=== PATIENT | female | born 1940 | race Hispanic/Latino ===

== ENCOUNTER 2024-08-01 19:37 | Inpatient (IN) | payer OTHER ==
[2024-08-01 21:06] LABS: Nucleated RBC Absolute Count 0.1 (0-0); Nucleated Red Blood Cells % 1.2 % (0-0)
[2024-08-01 21:10] LABS: PT Prothrombin Time 13.1 SECONDS (9.4-12.5); Protime INR 1.18
[2024-08-01 21:13] LABS: Absolute Basophils 0.2 K/uL (0-0.5); Absolute Lymphocytes (CBC) 1.4 K/uL (0.7-4.9); Absolute Monocytes 0.8 K/uL (0.1-1.3); Eosinophils % 0.3 % (0-4.4); Hematocrit 17.7 % (36.0-45.0); Lymphocytes % 16.6 % (15.3-44.8); MCH 17.3 pg (27.0-35.0); MCHC 28.3 g/dL (32.0-36.0); MCV 61.2 fL (80-100); MPV 8.8 fL (7.6-11.3); Monocytes % 9.9 % (3.3-12.3); Neutrophils % 71.2 % (41.7-73.7); Platelets 247 thou/uL (152-406); RBC Red Blood Cell Count 2.89 M/uL (3.86-4.86)
--- NOTE | 2024-08-01 21:19 | RAD REPORT ---
EXAM: Chest Single View HISTORY: AMS COMPARISON: None. FINDINGS: LUNGS/PLEURA: Diffuse prominence of the pulmonary interstitium. Mild hazy opacities. MEDIASTINUM: The mediastinal silhouette is within normal limits. CARDIAC: Cardiomegaly. UPPER ABDOMEN: No significant abnormality. BONES: No acute fracture. LINES/TUBES/OTHER: N/A IMPRESSION: Mild pulmonary edema suspected.
[2024-08-01 21:24] LABS: Albumin 3.9 g/dL (3.4-5.0); Anion Gap 12.3 mEq/L (5.0-15.0); Bilirubin Total 0.3 mg/dL (0.2-1.0); Globulin 3.8 g/dL (2.3-3.5); Potassium 4.3 mEq/L (3.5-5.1); Protein, Total 7.7 g/dL (6.4-8.2)
[2024-08-01] MEDS ORDERED: GABAPENTIN 300 MG CAP ONE (22:18)
[2024-08-01 23:18] LABS: Specific Gravity 1.017 (1.005-1.030); Urine Bilirubin NEGATIVE (Negative); Urine Blood Negative (Negative); Urine Clarity Clear (Clear); Urine Color Light-Yellow (Yellow); Urine Glucose NEGATIVE (Negative); Urine Ketones TRACE (Negative); Urine Microscopic Reflex YN NO UMIC; Urine Nitrite NEGATIVE (Negative); Urine Protein NEGATIVE (Negative); Urine Urobilinogen Normal (Normal)
[2024-08-02] MEDS ORDERED: NA CHLORIDE 0.9% 250 ML ONE ×2 (00:02→03:57)
[2024-08-02 02:58] LABS: Anisocytosis 2+; Blood Morphology Comment NOTED (NOT SEEN); Differential Total Cells Count 100; Eosinophils 1 % (0-3); Hypochromasia 3+; Lymphocytes 22 % (15-42); Microcytosis 2+; Monocytes 6 % (0-10); Nucleated Red Blood Cells 8 /100WBC; Platelet Estimate ADEQ; Poikilocytosis 2+; Polychromasia 2+; Segmented Neutrophils 69 % (40-80)
[2024-08-02 02:59] LABS: Ovalocytes 1+; Teardrop Cell FEW
[2024-08-02 03:21] LABS: Hematocrit 21.9 % (36.0-45.0); Hemoglobin 6.4 g/dL (12.0-15.0); MCH 18.5 pg (27.0-35.0); MCV 63.6 fL (80-100); MPV 8.3 fL (7.6-11.3); Platelets 206 thou/uL (152-406); RBC Red Blood Cell Count 3.44 M/uL (3.86-4.86); Red Cell Distribution Width 24.9 % (12.1-15.2)
--- NOTE | 2024-08-02 04:35 | RAD REPORT ---
EXAM DESCRIPTION: CT HEAD WITHOUT IV CONTRAST 08/02/2024 3:36 AM DIRECTOR DIVERSITY CLINICAL HISTORY: 83 years, Female, Confused. COMPARISON: CT Head 02/22/2023. FINDINGS: Multiple transaxial tomograms of the brain were obtained from the base of the skull to the vertex wit hout contrast. An individualized dose optimization technique, Automated Exposure Control, was utilized for the perfo rmed procedure. Brain: The brain demonstrate prominence of the sulci and gyri corresponding to mild brain atrophy. Th ere is periventricular white matter changes of microvascular ischemia. There are minimal punctate opacification bilateral basal ganglia. No acute intracranial hemorrhage. No midline shift and/or mass effect. Ventricles: Lateral ventricles and cisterns displace normal appearance. Vasculature: No visualized abnormalities in the arteries or dural venous sinuses. Scalp/skull: The calvarium demonstrate to be intact with no evidence for acute bony injuries. Sinuses: The visualized paranasal sinuses and mastoid air cells demonstrate to be clear. Orbits: No significant abnormalities in the visualized orbital structures. IMPRESSION: No acute intracranial hemorrhage. Mild brain atrophy with periventricular white matter changes of microvascular ischemia. Electronically signed by: Rell Bella MD 08/02/2024 03:50 AM DIRECTOR DIVERSITY Due to temporary technical issues with the [employer] reporting system, reports are being felicity d by the in-house radiologist without review as a courtesy to ensure prompt reporting the interpreting radiologist is fully responsible for the content of the report. Transcribed Date/Time: 08/02/2024 4:35 AM
[2024-08-02 07:34] LABS: Hematocrit 26.7 % (36.0-45.0); Hemoglobin 8.2 g/dL (12.0-15.0); MCH 21.2 pg (27.0-35.0); MCHC 30.8 g/dL (32.0-36.0); MCV 68.6 fL (80-100); MPV 8.7 fL (7.6-11.3); Platelets 210 thou/uL (152-406); RBC Red Blood Cell Count 3.89 M/uL (3.86-4.86); Red Cell Distribution Width 29.9 % (12.1-15.2)
--- NOTE | 2024-08-02 07:38 | ER ---
Nurse's Notes [facility] Name: Arvind Wolf Age: 83 yrs Sex: Female : 1940 Arrival Date: 08/01/2024 Time: 19:37 Bed 7 Private MD: Diagnosis: Altered mental status, unspecified;Dementia in other diseases classified elsewhere without behavioral disturbance;Anemia, unspecified;Do not resuscitate Presentation: 08/01 19:52 Chief complaint: increased confusion that started after starting bactrim for a uti. cp4 Symptoms started . Coronavirus screen: Client denies travel out of the [place] in the last 14 days. At this time, the client does not indicate any symptoms associated with coronavirus-19. Ebola Screen: Patient negative for fever greater than or equal to 101.5 degrees Fahrenheit, and additional compatible Ebola Virus Disease symptoms Patient denies exposure to infectious person. Patient denies travel to an Ebola-affected area in the 21 days before illness onset. No symptoms or risks identified at this time. Initial Sepsis Screen: Does the patient meet any 2 criteria? No. Patient's initial sepsis screen is negative. Does the patient have a suspected source of infection? No. Patient's initial sepsis screen is negative. Risk Assessment: Do you want to hurt yourself or someone else? Patient reports no desire to harm self or others. Onset of symptoms was July 30, 2024. 19:52 Method Of Arrival: Wheelchair cp4 19:52 Acuity: ZONIA 3 cp4 Triage Assessment: 19:54 General: Appears in no apparent distress. comfortable, Behavior is calm, cooperative, cp4 appropriate for age. Pain: Denies pain. 19:54 Neuro: Oriented to. Neuro: Oriented to person. cp4 Historical: - Allergies: 19:54 No Known Allergies; cp4 - Immunization history:: Adult Immunizations up to date. - Infectious Disease History:: Denies. - Social history:: Smoking status: Patient denies any tobacco usage or history of. Screenin:29 [facility] ED Fall Risk Assessment (Adult) History of falling in the last 3 months, al5 including since admission No falls in past 3 months (0 pts) Confusion or Disorientation Yes (5 pts) Intoxicated or Sedated No (0 pts) Impaired Gait Yes (1 pt) Mobility Assist Device Used Yes (1 pt) Altered Elimination Yes (1 pt) Score/Fall Risk Level 3 or more points = High Risk Oriented to surroundings, Maintained a safe environment, Provided non-skid footwear, Hourly rounding (assess needs \T\ fall precautionary measures) done, Apply high fall risk patient identification: yellow non skid footwear/ fall signage. Abuse screen: Denies threats or abuse. Denies injuries from another. Nutritional screening: No deficits noted. Tuberculosis screening: No symptoms or risk factors identified. Assessment: 21:04 General: Appears in no apparent distress. uncomfortable, Behavior is calm, cooperative. al5 General: per patient family, patient is oriented, but has been having confusion along with some delusions. patient family states that she was talking to people that were not even in the house. patient not doing that at this time. Pain: Complains of pain in right leg and left leg. Neuro: Level of Consciousness is awake, alert, obeys commands, Oriented to person, place, time, situation. Cardiovascular: Capillary refill < 3 seconds Patient's skin is warm and dry. Respiratory: Airway is patent Respiratory effort is even, unlabored, Respiratory pattern is regular, symmetrical. GI: No signs and/or symptoms were reported involving the gastrointestinal system. : No signs and/or symptoms were reported regarding the genitourinary system. EENT: No signs and/or symptoms were reported regarding the EENT system. Derm: Skin is intact, Skin is pink, warm \T\ dry. normal. Musculoskeletal: Reports pain in right leg and left leg. 22:57 Reassessment: Patient appears in no apparent distress at this time. No changes from al5 previously documented assessment. Patient and/or family updated on plan of care and expected duration. Pain level reassessed. Patient is alert, oriented x 3, equal unlabored respirations, skin warm/dry/pink. 23:48 Reassessment: Patient appears in no apparent distress at this time. Patient and/or al5 family updated on plan of care and expected duration. Pain level reassessed. Patient is alert, oriented x 3, equal unlabored respirations, skin warm/dry/pink. restless leg is better post medication. 08/02 00:30 Reassessment: Patient appears in no apparent distress at this time. No changes from al5 previously documented assessment. Patient and/or family updated on plan of care and expected duration. Pain level reassessed. Patient is alert, oriented x 3, equal unlabored respirations, skin warm/dry/pink. see blood transfusion flowsheet record for vitals. 02:30 Reassessment: Patient appears in no apparent distress at this time. No changes from al5 previously documented assessment. Patient and/or family updated on plan of care and expected duration. Pain level reassessed. Patient is alert, oriented x 3, equal unlabored respirations, skin warm/dry/pink. 03:10 Reassessment: Patient appears in no apparent distress at this time. No changes from al5 previously documented assessment. Patient and/or family updated on plan of care and expected duration. Pain level reassessed. Patient is alert, oriented x 3, equal unlabored respirations, skin warm/dry/pink. 04:15 Reassessment: Patient appears in no apparent distress at this time. No changes from al5 previously documented assessment. Patient and/or family updated on plan of care and expected duration. Pain level reassessed. Patient is alert, oriented x 3, equal unlabored respirations, skin warm/dry/pink. see blood transfusion flowsheet record for vitals. 05:20 Reassessment: Patient appears in no apparent distress at this time. No changes from al5 previously documented assessment. Patient and/or family updated on plan of care and expected duration. Pain level reassessed. Patient is alert, oriented x 3, equal unlabored respirations, skin warm/dry/pink. 06:14 Reassessment: Patient appears in no apparent distress at this time. No changes from al5 previously documented assessment. Patient and/or family updated on plan of care and expected duration. Pain level reassessed. Patient is alert, oriented x 3, equal unlabored respirations, skin warm/dry/pink. 07:30 Reassessment: Pt placed up for d/c by kip BLANCO, granddaughter at bedside is ph voicing concern about taking the pt home because she is still very confused, Dr Ruiz notified about family's concerns, d/c pending. 09:30 Reassessment: Patient appears in no apparent distress at this time. No changes from ph previously documented assessment. Patient and/or family updated on plan of care and expected duration. Pain level reassessed. Pt awake and alert, follows commands, oriented to person only, will be admitted for AMS. 12:20 Reassessment: Report faxed to second floor, notified STIVEN Jaramillo. ph Vital Signs: 08/01 19:52 BP 148 / 62; Pulse 79; Resp 18; Temp 97.1; Pulse Ox 96% ; Pain 0/10; cp4 20:15 BP 110 / 87; Pulse 76; Resp 19; Pulse Ox 100% on R/A; al5 21:00 BP 131 / 58; Pulse 88; Resp 15; Pulse Ox 91% on R/A; al5 21:15 BP 105 / 75; Pulse 86; Resp 22; Pulse Ox 100% on R/A; al5 21:30 BP 113 / 77; Pulse 86; Resp 21; Pulse Ox 100% on R/A; al5 21:45 BP 101 / 84; Pulse 77; Resp 23; Pulse Ox 100% on R/A; al5 22:00 BP 97 / 78; Pulse 93; Resp 20; Pulse Ox 100% on R/A; al5 22:15 BP 107 / 36; Pulse 91; Resp 20; Pulse Ox 100% on R/A; al5 22:30 BP 170 / 43; Pulse 89; Resp 24; Pulse Ox 99% on R/A; al5 22:45 BP 138 / 74; Pulse 90; Resp 22; Pulse Ox 99% on R/A; al5 23:00 BP 133 / 92; Pulse 94; Resp 22; Pulse Ox 100% on R/A; al5 08/02 00:00 BP 129 / 46; Pulse 81; Resp 21; Pulse Ox 99% on R/A; al5 01:21 Weight 58.06 kg; rv1 03:00 BP 112 / 85; Pulse 87; Resp 19; Temp 98.7; Pulse Ox 100% on R/A; al5 03:30 BP 116 / 41; Pulse 68; Resp 12; Pulse Ox 99% on R/A; al5 04:00 BP 121 / 41; Pulse 69; Resp 12; Pulse Ox 99% on R/A; al5 06:00 BP 165 / 49; Pulse 64; Resp 13; Temp 98.4; Pulse Ox 99% on R/A; al5 06:30 BP 150 / 84; Pulse 71; Resp 14; Pulse Ox 100% on R/A; al5 08:00 BP 126 / 89; Pulse 69; Resp 18; Pulse Ox 98% on R/A; ph 09:00 BP 137 / 92; Pulse 69; Resp 18; Pulse Ox 99% on R/A; ph 10:00 BP 138 / 51; Pulse 70; Resp 16; Pulse Ox 97% on R/A; ph 11:30 BP 130 / 94; Pulse 82; Resp 18; Temp 97.4; Pulse Ox 98% on R/A; ph 08/01 19:52 Pain Scale: Adult cp4 Heidi Coma Score: 11:30 Eye Response: spontaneous(4). Motor Response: obeys commands(6). Verbal Response: ph confused(4). Total: 14. ED Course: 08/01 19:40 Patient arrived in ED. gm2 19:54 Triage completed. cp4 19:56 Teresita Jackson is Primary Nurse. cp4 19:56 Arm band placed on right wrist. Patient placed in waiting room. EKG completed in 4 triage. Results shown to MD. 20:04 Medhat Aldridge MD is Attending Physician. bo1 20:29 No provider procedures requiring assistance completed. al5 20:30 Patient has correct armband on for positive identification. Bed in low position. Call al5 light in reach. Side rails up X2. family at bedside. Provided Education on: plan of care. 20:31 Bess Mccracken, STIVEN is Primary Nurse. al5 21:03 Inserted saline lock: 22 gauge in right antecubital area, using aseptic technique. al5 Blood collected. Flushed with 10 mL NS. 21:12 Chest Single View XRAY In Process Unspecified. EDMS 21:16 Notified ED physician of a critical lab result(s). Hemoglobin 5.0. vc1 22:30 Consent for blood and/or blood product transfusion explained by staff, explained by al5 physician, signed by guardian. 08/02 00:49 One-on-one care X 15 minutes. al5 02:44 CT Head Brain wo Cont In Process Unspecified. EDMS 07:37 Rahul Almaguer MD is Referral Physician. bo1 09:49 Attending Physician role handed off by Medhat Aldridge MD tyron 09:49 Collins Ruiz MD is Attending Physician. tyron 09:55 Primary Nurse role handed off by Bess Mccracken, STIVEN ph 09:55 Irina Gallegos RN is Primary Nurse. ph 09:57 Bao Franklin MD is Hospitalizing Provider. tyron 12:27 Patient admitted, IV remains in place. ph Administered Medications: 08/01 22:57 Drug: Gabapentin PO 300 mg PO once Route: PO; al5 08/02 01:59 Follow up: Response: No adverse reaction; Pain is decreased al5 12:11 Drug: Pantoprazole IVP 40 mg IVP once Route: IVP; Site: left antecubital; ph 12:30 Follow up: Response: No adverse reaction ph Medication: 08/01 20:29 VIS not applicable for this client. al5 Outcome: 08/02 07:38 Discharge ordered by . bo1 09:58 Decision to Hospitalize by Provider. tyron 13:20 Patient left the ED. ph Signatures: Dispatcher [employer] EDMS Collins Ruiz MD MD cha Hall, Patricia, STIVEN SALEEM ph Calcote, STIVEN Quintanilla RN vc1 Jocelyne Haskins 1 Teresita Jackson cp4 Terrie Roberts 2 Medhat Aldridge MD MD bo1 Bess Mccracken RN RN al5 Corrections: (The following items were deleted from the chart) 08/01 19:56 19:54 Neuro: Level of Consciousness is awake, alert, obeys commands, Oriented to cp4 person, place, time, situation, cp4 08/02 04:43 08/01 23:48 Reassessment: Patient appears in no apparent distress at this time. No al5 changes from previously documented assessment. Patient and/or family updated on plan of care and expected duration. Pain level reassessed. Patient is alert, oriented x 3, equal unlabored respirations, skin warm/dry/pink. al5 08/02 04:49 00:56 Reassessment: Patient appears in no apparent distress at this time. No changes al5 from previously documented assessment. Patient and/or family updated on plan of care and expected duration. Pain level reassessed. Patient is alert, oriented x 3, equal unlabored respirations, skin warm/dry/pink. al5
--- NOTE | 2024-08-02 07:38 | EDPHYS ---
Physician Documentation [facility] Name: Arvind Wolf Age: 83 yrs Sex: Female : 1940 Arrival Date: 08/01/2024 Time: 19:37 Bed 7 Private MD: ED Physician Collins Ruiz HPI: 08/01 20:55 This 83 yrs old Female presents to ER via Wheelchair with complaints of bo1 Altered Mental Status. 20:55 The patient presents with confusion, Hallucinations during the entire day since bo1 . Onset: The symptoms/episode began/occurred gradually, 2 day(s) ago. Associated signs and symptoms: Pertinent positives: Diminished appetite but will eat food in front of the pt, Pertinent negatives: abdominal pain, chest pain, vomiting. Patient's baseline: Normal except limited walking. Pt has been given "hospice care" since March for heart failure dx, twice a week hospice nurse care. Pt is towards the end of Bactrim for UTI sxs this week. Historical: - Allergies: 19:54 No Known Allergies; cp4 - Immunization history:: Adult Immunizations up to date. - Infectious Disease History:: Denies. - Social history:: Smoking status: Patient denies any tobacco usage or history of. ROS: 08/02 07:44 Cardiovascular: Negative for chest pain, bo1 Respiratory: Negative for shortness of breath, Abdomen/GI: Positive for black/tarry stool, rectal bleeding, Dark "black" stools for the past 2-3 weeks after pickup from [place], [place]/extremity: Positive for Shaking and twitching - restless leg syndrome "worse" after the Bacofen med was started, All other systems are negative, 07:45 Constitutional: Negative for fever, chills, and weight loss bo1 07:45 Constitutional: Negative for fever, weight loss, Exam: 08/01 22:01 ECG was reviewed by the Attending Physician. bo1 08/02 07:46 Constitutional: The patient appears alert, awake, non-toxic, frail, bo1 Eyes: Conjunctiva: pale, bilaterally, Sclera: icterus, is not appreciated, Chest/axilla: Inspection: normal, no acute changes, Cardiovascular: Rate: normal, Rhythm: regular, Pulses: no pulse deficits are appreciated, Respiratory: the patient does not display signs of respiratory distress, Respirations: normal, Breath sounds: are clear throughout, Abdomen/GI: Palpation: abdomen is soft and non-tender, Musculoskeletal/extremity: DVT Exam: no pain, no swelling, no tenderness, "occ shaking and tremor" Occasional jerking BLE. Skin: no rash present. Neuro: Orientation: is normal, appropriate for stated age, Mentation: is normal, appropriate for stated age, Memory: seizure activity, is not displayed by the patient, No AMS as pt is not seeing "red spots" on the saeed at the moment, 07:48 Constitutional: This is a well developed, well nourished patient who is awake, alert, bo1 and in no acute distress. Vital Signs: 08/01 19:52 BP 148 / 62; Pulse 79; Resp 18; Temp 97.1; Pulse Ox 96% ; Pain 0/10; cp4 20:15 BP 110 / 87; Pulse 76; Resp 19; Pulse Ox 100% on R/A; al5 21:00 BP 131 / 58; Pulse 88; Resp 15; Pulse Ox 91% on R/A; al5 21:15 BP 105 / 75; Pulse 86; Resp 22; Pulse Ox 100% on R/A; al5 21:30 BP 113 / 77; Pulse 86; Resp 21; Pulse Ox 100% on R/A; al5 21:45 BP 101 / 84; Pulse 77; Resp 23; Pulse Ox 100% on R/A; al5 22:00 BP 97 / 78; Pulse 93; Resp 20; Pulse Ox 100% on R/A; al5 22:15 BP 107 / 36; Pulse 91; Resp 20; Pulse Ox 100% on R/A; al5 22:30 BP 170 / 43; Pulse 89; Resp 24; Pulse Ox 99% on R/A; al5 22:45 BP 138 / 74; Pulse 90; Resp 22; Pulse Ox 99% on R/A; al5 23:00 BP 133 / 92; Pulse 94; Resp 22; Pulse Ox 100% on R/A; al5 08/02 00:00 BP 129 / 46; Pulse 81; Resp 21; Pulse Ox 99% on R/A; al5 01:21 Weight 58.06 kg; rv1 03:00 BP 112 / 85; Pulse 87; Resp 19; Temp 98.7; Pulse Ox 100% on R/A; al5 03:30 BP 116 / 41; Pulse 68; Resp 12; Pulse Ox 99% on R/A; al5 04:00 BP 121 / 41; Pulse 69; Resp 12; Pulse Ox 99% on R/A; al5 06:00 BP 165 / 49; Pulse 64; Resp 13; Temp 98.4; Pulse Ox 99% on R/A; al5 06:30 BP 150 / 84; Pulse 71; Resp 14; Pulse Ox 100% on R/A; al5 08:00 BP 126 / 89; Pulse 69; Resp 18; Pulse Ox 98% on R/A; ph 09:00 BP 137 / 92; Pulse 69; Resp 18; Pulse Ox 99% on R/A; ph 10:00 BP 138 / 51; Pulse 70; Resp 16; Pulse Ox 97% on R/A; ph 11:30 BP 130 / 94; Pulse 82; Resp 18; Temp 97.4; Pulse Ox 98% on R/A; ph 12/21 19:52 Pain Scale: Adult cp4 Heidi Coma Score: 11:30 Eye Response: spontaneous(4). Motor Response: obeys commands(6). Verbal Response: ph confused(4). Total: 14. MDM: 08/01 20:04 Medical Screening Exam initiated bo1 08/02 07:40 Differential Diagnosis: GI bleed, anemia. Data reviewed: vital signs, lab test bo1 result(s), EKG, radiologic studies, CT scan, plain films. Consideration of Admission/Observation Patient was admitted/placed on observation. No ICU beds or GI med today. Management of patient was discussed with the following: Hospitalist: Dr Jose BLANCO. Response to treatment: the patient's symptoms have markedly improved after treatment, the patient's condition has returned to base line, Pt is tranfused 2 units of PRBCs. Special discussion: With family, daughter and granddaughter. Option to maintain hospice care for now after Dx made in [place]. Melena history to be worked up if desired as an OP. No transfer to higher level of care at the present time.. 07:49 ED course: Multiple discussions with transfer service at [facility] DT. Risks benefits of a bo1 transfer. At this time a transfer is not indicated by discussion with IM at [facility] as pt's age and hospice status in not aligned with pt's family. [facility] a bed availability issue.. 08/01 20:05 Order name: CBC with Diff; Complete Time: 03:40 bo1 08/01 20:05 Order name: CMP; Complete Time: 21:28 bo1 08/01 20:05 Order name: Lactate w/ 2H reflex if indic.; Complete Time: 21:28 bo1 08/01 20:05 Order name: Protime (+inr); Complete Time: 21:28 bo1 08/01 20:05 Order name: Urinalysis w/ reflexes; Complete Time: 03:40 bo1 08/01 20:06 Order name: Urinalysis w/ reflexes bo 08/01 21:29 Order name: Type And Screen bo 08/01 22:59 Order name: Packed RBC Leukored EDMS 08/01 23:37 Order name: ABO/RH no charge; Complete Time: 03:40 EDMS 08/02 02:57 Order name: CBC w/o diff; Complete Time: 03:40 bo1 08/02 02:59 Order name: Manual Differential; Complete Time: 03:40 EDMS 08/02 03:46 Order name: BNP; Complete Time: 04:46 bo1 08/02 06:13 Order name: CBC w/o diff; Complete Time: 09:50 bo1 08/02 08:13 Order name: CBC Smear Scan; Complete Time: 09:50 EDMS 08/02 11:50 Order name: Basic Metabolic Panel EDMS 08/02 11:50 Order name: Basic Metabolic Panel EDMS 08/02 11:50 Order name: Basic Metabolic Panel EDMS 08/02 11:50 Order name: Basic Metabolic Panel EDMS 08/02 11:50 Order name: CBC with Automated Diff EDMS 08/02 11:50 Order name: CBC with Automated Diff EDMS 08/02 11:50 Order name: CBC with Automated Diff EDMS 08/02 11:50 Order name: CBC with Automated Diff EDMS 08/02 11:50 Order name: Magnesium EDMS 08/02 11:50 Order name: Magnesium EDMS 08/02 11:50 Order name: Magnesium EDMS 08/02 11:50 Order name: Magnesium EDMS 08/02 11:50 Order name: Phosphorus EDMS 08/02 11:50 Order name: Phosphorus EDMS 08/02 11:50 Order name: Phosphorus [facility] 08/02 11:50 Order name: Phosphorus [facility] 08/01 20:35 Order name: Chest Single View XRAY; Complete Time: 21:28 bo1 08/02 01:59 Order name: CT Head Brain wo Cont; Complete Time: 07:12 bo1 08/01 20:05 Order name: EKG; Complete Time: 20:06 bo1 08/02 11:49 Order name: Physical Therapy Consult [facility] 08/01 20:05 Order name: Cardiac monitoring; Complete Time: 21:23 bo1 08/01 20:05 Order name: EKG - Nurse/Tech; Complete Time: 21:23 bo1 08/01 20:05 Order name: IV Saline Lock - Large Bore; Complete Time: 21:03 bo1 08/01 20:05 Order name: Labs collected and sent; Complete Time: 21:03 bo1 08/01 20:05 Order name: O2 Per Protocol; Complete Time: 21:03 bo1 08/01 20:05 Order name: O2 Sat Monitoring; Complete Time: 21:03 bo1 08/01 20:05 Order name: Vital Signs; Complete Time: 21:03 bo1 EC/21 22:01 Rate is 83 beats/min. Rhythm is regular. QRS [place] is Normal. SD interval is normal. QRS bo1 interval is normal. QT interval is normal. No Q waves. T waves are Normal. No ST changes noted. Clinical impression: Normal ECG and LVH. Interpreted by me. Reviewed by me. Administered Medications: 22:57 Drug: Gabapentin PO 300 mg PO once Route: PO; al5 08/02 01:59 Follow up: Response: No adverse reaction; Pain is decreased al5 12:11 Drug: Pantoprazole IVP 40 mg IVP once Route: IVP; Site: left antecubital; ph 12:30 Follow up: Response: No adverse reaction ph Disposition Summary: 08/02/24 09:58 Hospitalization Ordered Notes: Hospitalization Status: Observation tyron Provider: Bao Franklin cha Location: Telemetry/MedSurg (observation)(08/02/24 09:58) tyron Condition: Fair(08/02/24 09:58) tyron Problem: new(08/02/24 09:58) tyron Symptoms: have improved(08/02/24 09:58) tyron Bed/Room Type: Standard tyron Room Assignment: 228(08/02/24 11:55) em1 Diagnosis - Altered mental status, unspecified tyron - Dementia in other diseases classified 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 EDMS EDMS 21:03 20:05 Accucheck ordered. bo1 al5 21:30 21:30 TYPE AND SCREEN+BB.LAB.BRZ ordered. EDMS EDMS 22:58 21:30 PACKED RBC LEUKORED+BB.LAB.BRZ ordered. EDMS EDMS 22:58 21:32 ABO/RH typing ordered. EDMS EDMS 22:58 21:32 Antibody Screen ordered. EDMS EDMS 08/02 02:57 02:57 CBC without Diff+H.LAB.BRZ ordered. EDMS EDMS 03:46 03:46 PROBNP+C.LAB.BRZ ordered. EDMS EDMS 06:13 06:13 CBC without Diff+H.LAB.BRZ ordered. EDMS EDMS 09:50 07:38 Home bo1 [facility] 09:50 07:38 new bo1 [facility] 09:50 07:38 have improved bo1 [facility] 09:50 07:38 Stable bo1 [facility] 09:50 07:38 Anemia, unspecified bo1 [facility] 09:50 07:38 Melena bo1 [facility] 11:55 09:58 tyron em1
[2024-08-02 08:12] LABS: Anisocytosis 2+; Blood Morphology Comment NOTED (NOT SEEN); Hypochromasia 1+; Microcytosis 1+; Platelet Estimate ADEQ; Polychromasia 1+; White Blood Cell Scan OK (OK)
[2024-08-02] MEDS ORDERED: PANTOPRAZOLE 40 MG INJ ONE (10:40)
--- NOTE | 2024-08-02 11:50 | P.HP ---
Certification for Inpatient Patient admitted to: Observation With expected LOS: <2 Midnights Practitioner: I am a practitioner with admitting privileges, knowledge of patient current condition, hospital course, and medical plan of care. Services: Services provided to patient in accordance with Admission requirements found in Title 42 Section 412.3 of the Code of Federal Regulations Patient History Date of Service: 08/02/24 Reason for admission: acute metabolic encephalopathy History of Present Illness: Arvind Wolf is an 83 year old female with Pmhx restless leg, CHF, GI bleed who presents to the ED with chief complaint of AMS. Laboratory evaluation revealed H/H 12/26 requiring 2 units of PRBC. Family reports black stool a few days ago at home which has continued. They noticed she started hallucinating at home and brought her to the ED. Family reports she had a blood transfusion two years ago when she experienced a GI bleed. At that time a colonoscopy was performed and did not find a bleed. She has since been fine. She is currently on hospice but family and hospice company are unsure why. Family is requesting evaluation for her alerted mental status, hallucinations, and weakness. She was recently prescribed bactim which started on Sunday 07/29 and halluciations started on 07/30 and takes baclofen. Head CT and chest xray with no acute findings. Arvind will be admitted to observation with the hospitalist service for further evaluation of acute blood loss anemia and metabolic encephalopathy. Allergies No Known Allergies Allergy (Unverified 08/02/24 13:54) Home Medications: Baclofen 5 mg PO BID PRN 08/02/24 Omeprazole 20 mg PO BID 08/02/24 Smz./Tmp. [Bactrim Ds 800 MG/160 MG] 1 tab PO BID 08/02/24 - Past Medical/Surgical History -: CHF -: restless leg syndrome -: GI bleed - Social History Smoking Status: Never smoker Alcohol use: No CD- Drugs: No Review of Systems General: Weakness Neurological: Other (hallucinations) Physical Examination - Physical Exam General: Alert, In no apparent distress, Confused HEENT: Atraumatic, Normocephalic, PERRLA Neck: Supple, 2+ carotid pulse no bruit Respiratory: Clear to auscultation bilaterally, Normal air movement Cardiovascular: Normal pulses, Regular rate/rhythm, Normal S1 S2 Capillary refill: <2 Seconds Gastrointestinal: Soft and benign, No tenderness Musculoskeletal: No clubbing Integumentary: No rashes Neurological: Normal speech, Normal tone, Other (confusion) - Studies Laboratory Data (last 24 hrs) 08/02/24 08/02/24 08/01/24 06:38 03:02 20:55 WBC 7.40 7.60 Hgb 8.2 L D 6.4 L D Hct 26.7 L 21.9 L Plt Count 210 206 PT 13.1 H INR 1.18 Sodium Potassium BUN Creatinine Glucose Total Bilirubin AST ALT Alkaline Phosphatase 08/01/24 08/01/24 20:55 20:55 WBC 8.40 Hgb 5.0 L* Hct 17.7 L Plt Count 247 PT INR Sodium 130 L Potassium 4.3 BUN 19 H Creatinine 1.03 H Glucose 111 H Total Bilirubin 0.3 AST 45 H ALT 27 Alkaline Phosphatase 73 Assessment and Plan - Plan Assessment and plan Acute metabolic encephalopathy Weakness -Reports taking baclofen and bactrim -reports hallucinations and seeing red color on everything -head CT with no acute findings -supportive care -elementary school social worker consult for HH vs fdc care needs -Physical therapy Acute blood loss anemia History of GI bleed -H/H 12/26, 01/30, 8.2/26.7 -2 units PRBC given in the ED -monitor H/H in AM labs Restless leg syndrome CHF GERD -continue home medications DVT ppx SCD DNR LOS 2 days - Advance Directives Does patient have a Living Will: No Does patient have a Durable POA for Healthcare: No
[2024-08-02] MEDS ORDERED: SODIUM CHLORIDE 0.9% 10ML INJ IV PRN (12:46)
[2024-08-02] MEDS: PANTOPRAZOLE 40 MG INJ IVP SCH (12:46)
[2024-08-02 13:54] VITALS: BMI 27.3
[2024-08-02] MEDS: NA CHLORIDE 0.9% 1,000 ML IV SCH (14:03)
[2024-08-02] MEDS: ACETAMINOPHEN 325 MG TABLET PO PRN (17:24)
[2024-08-02] MEDS: LORazepam 2 MG/ML VIAL IV ONE (23:02)
[2024-08-03 05:08] LABS: Absolute Basophils 0.1 K/uL (0-0.5); Absolute Eosinophils 0.1 K/uL (0-0.5); Absolute Lymphocytes (CBC) 1.7 K/uL (0.7-4.9); Absolute Neutrophil 4.6 K/uL (1.8-8.0); Basophils % 1.3 % (0-1.3); Eosinophils % 1.7 % (0-4.4); Hematocrit 26.2 % (36.0-45.0); Hemoglobin 7.8 g/dL (12.0-15.0); Lymphocytes % 22.8 % (15.3-44.8); MCH 20.6 pg (27.0-35.0); MCHC 29.8 g/dL (32.0-36.0); MPV 8.9 fL (7.6-11.3); Monocytes % 13.7 % (3.3-12.3); Neutrophils % 60.5 % (41.7-73.7); Nucleated Red Blood Cells % 0.5 % (0-0); Platelets 206 thou/uL (152-406); Red Cell Distribution Width 29.4 % (12.1-15.2)
[2024-08-03 05:28] LABS: Anion Gap 7.9 mEq/L (5.0-15.0); Magnesium 2.2 mg/dL (1.6-2.4); Phosphorus 3.1 mg/dL (2.5-4.9); Potassium 3.9 mEq/L (3.5-5.1)
[2024-08-03] MEDS: POTASSIUM CL SA 10 MEQ TAB PO ONE (09:09)
--- NOTE | 2024-08-03 11:09 | EKG ---
Test Date: 2024-08-01 Test Time: 21:17:29 Assignment Manager: GAYE MEASUREMENT RESULTS: Intervals: Rate: 83 NE: 142 QRSD: 88 QT: 408 QTc: 479 Tow: P: 51 NE: 142 QRS: 26 T: 120 INTERPRETIVE STATEMENTS: Normal sinus rhythm Left ventricular hypertrophy with repolarization abnormality Abnormal ECG No previous ECG available for comparison Electronically Signed On 08-03-24 11:07:24 WOOD FORM BUILDER by Vineet Long
[2024-08-03] MEDS: HYDRALAZINE HCL 20 MG/ML VIAL IV PRN (16:21)
[2024-08-03 17:30] LABS: Albumin 3.4 g/dL (3.4-5.0); Albumin/Globulin Ratio 0.9 (1.1-1.8); Bilirubin Direct 0.2 mg/dL (0-0.2); Bilirubin Indirect, Calculated 0.3 mg/dL (0.2-0.8); Bilirubin Total 0.5 mg/dL (0.2-1.0); Globulin 3.7 g/dL (2.3-3.5); Protein, Total 7.1 g/dL (6.4-8.2)
[2024-08-03] MEDS: TRAZODONE 50 MG TABLET PO PRN (21:03)
--- NOTE | 2024-08-03 21:31 | P.PN ---
Date of Service: 08/03/24 Subjective awake, continues to be confused H/H improving ROS 10 point ROS as noted above, otherwise negative Physical Exam General: Alert and Confused, NAD HEENT: Atraumatic, Normocephalic, PERRLA Neck: Supple, 2+ carotid pulse no bruit Respiratory: Clear to auscultation bilaterally, Normal air movement Cardiovascular: Normal pulses, RRR, Normal S1 S2, on RA Capillary refill: <2 Seconds Gastrointestinal: Soft and benign, No tenderness Musculoskeletal: No clubbing Integumentary: No rashes Neurological: Normal speech, Normal tone, Other (confusion) Vitals Reviewed Problem List Acute metabolic encephalopathy Weakness Acute blood loss anemia History of GI bleed Restless leg syndrome CHF GERD Assessment and Plan Acute metabolic encephalopathy Weakness -Reports taking baclofen and bactrim -reports hallucinations and seeing red color on everything -head CT with no acute findings -supportive care -social worker palliative care consult for HH vs termite renewal inspector care needs -Physical therapy Acute blood loss anemia History of GI bleed -H/H 12/26, 01/30, 8.2/26.7, 7.8/26.2,9.0/29.2 -2 units PRBC given in the ED 08/02 -monitor H/H in AM labs Restless leg syndrome CHF GERD -continue home medications DVT ppx SCD DNR LOS 2 days DVT ppx DNR LOS 2 days
[2024-08-04] MEDS: NA CHLORIDE 0.9% 250 ML ONE (02:56)
[2024-08-04] MEDS: NA CHLORIDE 0.9% 250 ML IV ONE ×2 (03:13→03:42)
[2024-08-04] MEDS: ADENOSINE 6 MG/ 2ML VIAL IV ONE ×2 (04:05→04:13)
[2024-08-04] MEDS: NA CHLORIDE 0.9% 0 ML ONE (04:06)
[2024-08-04 06:53] LABS: Absolute Lymphocytes (CBC) 0.6 K/uL (0.7-4.9); Absolute Monocytes 0.3 K/uL (0.1-1.3); Absolute Neutrophil 8.2 K/uL (1.8-8.0); Basophils % 0.3 % (0-1.3); Eosinophils % 0.1 % (0-4.4); Hematocrit 27.3 % (36.0-45.0); Hemoglobin 8.5 g/dL (12.0-15.0); Lymphocytes % 6.6 % (15.3-44.8); MCH 21.3 pg (27.0-35.0); MCV 68.6 fL (80-100); MPV 8.5 fL (7.6-11.3); Monocytes % 3.5 % (3.3-12.3); Neutrophils % 89.5 % (41.7-73.7); Nucleated Red Blood Cells % 0.3 % (0-0); Platelets 228 thou/uL (152-406); RBC Red Blood Cell Count 3.98 M/uL (3.86-4.86); Red Cell Distribution Width 30.6 % (12.1-15.2)
[2024-08-04 07:08] LABS: Anion Gap 10.6 mEq/L (5.0-15.0); Magnesium 2.4 mg/dL (1.6-2.4); Phosphorus 3.2 mg/dL (2.5-4.9); Potassium 4.6 mEq/L (3.5-5.1)
--- NOTE | 2024-08-04 12:25 | P.PN ---
Date of Service: 08/04/24 Subjective Sitting in bedside chair. total assist to the chair with physical therapy Arvind's mentation remains confused likely dementia OVN went into sustained SVT, adenosine administered and converted to normal sinus rhythm. ROS 10 point ROS as noted above, otherwise negative Physical Exam General: Alert and Confused, NAD HEENT: Atraumatic, Normocephalic, PERRLA Neck: Supple, 2+ carotid pulse no bruit Respiratory: Clear to auscultation bilaterally, Normal air movement Cardiovascular: Normal pulses, RRR, Normal S1 S2, on RA Capillary refill: <2 Seconds Gastrointestinal: Soft and benign, No tenderness Musculoskeletal: No clubbing Integumentary: No rashes Neurological: Normal speech, Normal tone, Other (confusion) Vitals Reviewed Problem List Acute metabolic encephalopathy Weakness Acute blood loss anemia History of GI bleed Restless leg syndrome CHF GERD Assessment and Plan Acute metabolic encephalopathy vs Dementia Weakness -Reports taking baclofen and bactrim -reports hallucinations and seeing red color on everything -head CT with no acute findings -supportive care -social media community manager consult for HH vs terminal worker care needs -Physical therapy Acute blood loss anemia History of GI bleed -H/H 12/26, 01/30, 8.2/26.7, 7.8/26.2,9.0/29.2, 8.5/27.3 -2 units PRBC given in the ED 08/02 -monitor H/H in AM labs Restless leg syndrome CHF GERD -continue home medications DVT ppx SCD DNR LOS 2 days
[2024-08-05 07:04] LABS: Absolute Basophils 0.1 K/uL (0-0.5); Absolute Eosinophils 0.3 K/uL (0-0.5); Absolute Lymphocytes (CBC) 1.4 K/uL (0.7-4.9); Absolute Monocytes 0.6 K/uL (0.1-1.3); Absolute Neutrophil 4.2 K/uL (1.8-8.0); Basophils % 1.3 % (0-1.3); Eosinophils % 5.2 % (0-4.4); Hematocrit 28.5 % (36.0-45.0); Hemoglobin 8.7 g/dL (12.0-15.0); Lymphocytes % 20.7 % (15.3-44.8); MCH 21.1 pg (27.0-35.0); MCHC 30.5 g/dL (32.0-36.0); MCV 69.2 fL (80-100); Monocytes % 9.7 % (3.3-12.3); Neutrophils % 63.1 % (41.7-73.7); Nucleated Red Blood Cells % 0.2 % (0-0); Platelets 230 thou/uL (152-406); RBC Red Blood Cell Count 4.13 M/uL (3.86-4.86); Red Cell Distribution Width 30.7 % (12.1-15.2)
[2024-08-05 07:23] LABS: Anion Gap 7.7 mEq/L (5.0-15.0); Magnesium 2.2 mg/dL (1.6-2.4); Phosphorus 3.1 mg/dL (2.5-4.9); Potassium 3.7 mEq/L (3.5-5.1)
[2024-08-05] MEDS: AMLODIPINE 5 MG TAB PO SCH (11:50)
--- NOTE | 2024-08-05 12:16 | P.PN ---
Date of Service: 08/05/24 Subjective Awake, continues to be pleasantly confused Daughter at bedside She does not have a UTI, UA is negative Confusion continues, will need to see PCP or neurologist for dementia determination Hypertensive, started Norvasc ROS 10 point ROS as noted above, otherwise negative Physical Exam General: Awake and Confused, NAD HEENT: Atraumatic, Normocephalic, PERRLA Neck: Supple, 2+ carotid pulse no bruit Respiratory: Clear to auscultation bilaterally, Normal air movement, on RA Cardiovascular: Normal pulses, NSR, Normal S1 S2 Capillary refill: <2 Seconds Gastrointestinal: Soft and benign on palpation, No tenderness Musculoskeletal: No clubbing Integumentary: No rashes Neurological: Normal speech, Normal tone, Other (confusion) Vitals Reviewed Problem List Acute metabolic encephalopathy Weakness Acute blood loss anemia History of GI bleed Restless leg syndrome CHF GERD Assessment and Plan Acute metabolic encephalopathy vs Dementia Weakness -Reports taking baclofen and bactrim -reports hallucinations and seeing red color on everything -head CT with no acute findings -supportive care -secondary social studies teacher consult for HH vs long haul truck driver care needs -Physical therapy Acute blood loss anemia History of GI bleed -H/H stable -2 units PRBC given in the ED 08/02 -monitor H/H in AM labs Hypertensive -Norvasc ordered -will continue to monitor Restless leg syndrome CHF GERD -continue home medications DVT ppx SCD DNR LOS 2 days
[2024-08-06 07:01] LABS: Absolute Basophils 0.1 K/uL (0-0.5); Absolute Eosinophils 0.3 K/uL (0-0.5); Absolute Lymphocytes (CBC) 1.3 K/uL (0.7-4.9); Absolute Monocytes 0.8 K/uL (0.1-1.3); Absolute Neutrophil 5.6 K/uL (1.8-8.0); Basophils % 1.2 % (0-1.3); Eosinophils % 3.3 % (0-4.4); Hematocrit 28.6 % (36.0-45.0); Hemoglobin 8.8 g/dL (12.0-15.0); Lymphocytes % 16.3 % (15.3-44.8); MCH 21.1 pg (27.0-35.0); MCHC 30.8 g/dL (32.0-36.0); MCV 68.5 fL (80-100); MPV 8.7 fL (7.6-11.3); Monocytes % 10.3 % (3.3-12.3); Neutrophils % 68.9 % (41.7-73.7); Nucleated Red Blood Cells % 0.2 % (0-0); Platelets 252 thou/uL (152-406); RBC Red Blood Cell Count 4.17 M/uL (3.86-4.86)
[2024-08-06 07:22] LABS: Anion Gap 10.9 mEq/L (5.0-15.0); Magnesium 2.1 mg/dL (1.6-2.4); Phosphorus 3.1 mg/dL (2.5-4.9); Potassium 3.9 mEq/L (3.5-5.1)
[2024-08-06 08:23] LABS: White Blood Cell Scan OK (OK)
[2024-08-06 08:24] LABS: Anisocytosis 3+; Blood Morphology Comment NOTED (NOT SEEN); Hypochromasia 1+; Microcytosis 1+; Ovalocytes 1+; Platelet Estimate ADEQ; Poikilocytosis 2+; Polychromasia 2+; Target Cells 1+
--- NOTE | 2024-08-06 09:24 | P.PN ---
Date of Service: 08/06/24 Subjective Awake, continues to be pleasantly confused Daughter at bedside ROS 10 point ROS as noted above, otherwise negative Physical Exam General: Awake and Confused, NAD HEENT: Atraumatic, Normocephalic, PERRLA Neck: Supple, 2+ carotid pulse no bruit Respiratory: Clear to auscultation bilaterally, Normal air movement, on RA Cardiovascular: Normal pulses, NSR, Normal S1 S2, Systolic murmur Capillary refill: <2 Seconds Gastrointestinal: Soft and benign on palpation, No tenderness Musculoskeletal: No clubbing Integumentary: No rashes Neurological: Normal speech, Normal tone, Other (confusion) Vitals Reviewed Problem List Acute metabolic encephalopathy Weakness SVT Acute blood loss anemia History of GI bleed Restless leg syndrome CHF GERD Plan Acute metabolic encephalopathy vs Dementia Weakness -Reports taking baclofen and bactrim -reports hallucinations and seeing red color on everything -head CT with no acute findings -supportive care -school social worker consult for HH vs care home care needs -Physical therapy SVT Had episode of SVT that resolved with adenosine 08/04 overnight Has been in NSR since Continue to monitor on tele Acute blood loss anemia History of GI bleed -H/H stable -2 units PRBC given in the ED 08/02 -monitor H/H in AM labs Hypertensive -Norvasc ordered -will continue to monitor Restless leg syndrome CHF GERD -continue home medications DVT ppx SCD DNR LOS 2 days <Adarsh Redmond - Last Filed: 08/06/24 09:22> Patient seen and examined. Plan of care discussed with Adarsh Redmond. Patient functional status is improved. She was able to transfer to a chair with one-person assist. Mental status improved, patient is currently at baseline. Patient is being evaluated for SNF. Continue PT. <jesus matamoros - Last Filed: 08/06/24 15:33>
--- NOTE | 2024-08-06 12:05 | P.CNS ---
Date of Consult: 08/06/24 Chief Complaint: acute metabolic encephalopathy History of Present Illness: Patient with no significant cardiac medical history admitted to the hospital with anemia and weakness, cardiology was consulted for a run of SVT terminated by adenosine, denies any cardiac symptoms. Allergies No Known Allergies Allergy (Unverified 08/02/24 13:54) Home medications list reviewed: Yes Home Medications: Baclofen 5 mg PO BID PRN 08/02/24 Omeprazole 20 mg PO BID 08/02/24 Smz./Tmp. [Bactrim Ds 800 MG/160 MG] 1 tab PO BID 08/02/24 - Past Medical/Surgical History Diabetic: No -: CHF -: restless leg syndrome -: GI bleed -: Cholecystectomy -: Hysterectomy - Social History Alcohol use: No CD- Drugs: No Caffeine use: Yes Place of Residence: Home Review of Systems 10-point ROS is otherwise unremarkable Physical Examination Temp Pulse Resp BP Pulse Ox 98.6 F 78 16 119/48 L 98 08/06/24 08:00 08/06/24 08:11 08/06/24 08:00 08/06/24 08:11 08/06/24 08:00 General: Alert, In no apparent distress HEENT: Atraumatic, PERRLA, Mucous membr. moist/pink, EOMI, Sclerae nonicteric Neck: Supple, 2+ carotid pulse no bruit, No LAD, Without JVD or thyroid abnormality Respiratory: Clear to auscultation bilaterally, Normal air movement Cardiovascular: Regular rate/rhythm, Normal S1 S2 Gastrointestinal: Normal bowel sounds, No tenderness Musculoskeletal: No tenderness Integumentary: No rashes Neurological: Normal gait, Normal speech, Normal tone, Normal affect Lymphatics: No axilla or inguinal lymphadenopathy - Problems (1) SVT (supraventricular tachycardia) Current Visit: Yes Status: Acute Plan: patient will need outpatient follow up for event monitor to rule out AF as differntial for her SVT. start Toprol XL 25 mg daily hold on anticoagulation for now due to not confirmed AF and recent GI bleed requiring blood transfusion. (2) Anemia Current Visit: Yes Status: Acute Plan: s/p transfusion of 2 units of PRBC
--- NOTE | 2024-08-06 16:00 | RAD REPORT ---
EXAMINATION: ONE VIEW CHEST XR CLINICAL INDICATION: Productive cough, dyspnea TECHNIQUE: Frontal chest projection is submitted. Examination is limited by patient positioning and t echnique. COMPARISON: 08/01/2024 FINDINGS: The lungs are well inflated and clear. The heart is mildly enlarged. No displaced fractures identifie d. Atherosclerosis aorta. IMPRESSION: No acute intrathoracic abnormalities.
[2024-08-06] MEDS: PANTOPRAZOLE 40MG TABLET PO SCH (18:46)
[2024-08-07 05:14] LABS: Absolute Basophils 0.1 K/uL (0-0.5); Absolute Lymphocytes (CBC) 0.9 K/uL (0.7-4.9); Absolute Monocytes 0.5 K/uL (0.1-1.3); Absolute Neutrophil 8.6 K/uL (1.8-8.0); Basophils % 0.6 % (0-1.3); Eosinophils % 0.4 % (0-4.4); Hematocrit 27.2 % (36.0-45.0); Hemoglobin 8.2 g/dL (12.0-15.0); Lymphocytes % 8.6 % (15.3-44.8); MCH 20.7 pg (27.0-35.0); MCHC 29.9 g/dL (32.0-36.0); MCV 69.2 fL (80-100); MPV 8.9 fL (7.6-11.3); Monocytes % 4.6 % (3.3-12.3); Neutrophils % 85.8 % (41.7-73.7); Platelets 216 thou/uL (152-406); RBC Red Blood Cell Count 3.94 M/uL (3.86-4.86); Red Cell Distribution Width 31.1 % (12.1-15.2)
[2024-08-07 05:51] LABS: Anion Gap 8.3 mEq/L (5.0-15.0); Phosphorus 3.7 mg/dL (2.5-4.9); Potassium 4.3 mEq/L (3.5-5.1)
[2024-08-07 07:00] LABS: Anisocytosis 3+; Band Neutrophils 1 % (0-1); Blood Morphology Comment NOTED (NOT SEEN); Differential Total Cells Count 100; Eosinophils 2 % (0-3); Lymphocytes 12 % (15-42); Monocytes 5 % (0-10); Platelet Estimate ADEQ; Segmented Neutrophils 80 % (40-80)
[2024-08-07 07:01] LABS: Hypochromasia 1+; Microcytosis 1+; Ovalocytes 1+; Poikilocytosis 1+; Polychromasia 1+
[2024-08-07] MEDS: METOPROLOL XL 25 MG TAB PO ONE (08:34)
--- NOTE | 2024-08-07 09:12 | P.PN ---
Date of Service: 08/07/24 Subjective Awake, mentation improving Working well with PT ROS 10 point ROS as noted above, otherwise negative Physical Exam General: Awake and Confused, NAD HEENT: Atraumatic, Normocephalic, PERRLA Neck: Supple, 2+ carotid pulse no bruit Respiratory: Clear to auscultation bilaterally, Normal air movement, on RA Cardiovascular: Normal pulses, NSR, Normal S1 S2, Systolic murmur Capillary refill: <2 Seconds Gastrointestinal: Soft and benign on palpation, No tenderness Musculoskeletal: No clubbing Integumentary: No rashes Neurological: Normal speech, Normal tone, Other (confusion) Vitals Reviewed Problem List Acute metabolic encephalopathy Weakness SVT Acute blood loss anemia History of GI bleed Restless leg syndrome CHF GERD Plan Acute metabolic encephalopathy vs Dementia Weakness -Reports taking baclofen and bactrim -reports hallucinations and seeing red color on everything -head CT with no acute findings -Mental status improving -supportive care -social work professor consult for HH vs longterm care needs -Physical therapy SVT Had episode of SVT that resolved with adenosine 08/04 overnight Has been in NSR since Continue to monitor on tele Cardiology recommend starting Toprol-XL which has been started Continue to monitor on telemetry, no A-fib currently Outpatient follow-up for event monitor/Holter to evaluate for possible underlying A-fib Acute blood loss anemia History of GI bleed -H/H stable -2 units PRBC given in the ED 08/02 -monitor H/H in AM labs Hypertensive -Norvasc ordered -will continue to monitor Restless leg syndrome CHF GERD -continue home medications DVT ppx SCD DNR LOS 2 days
--- NOTE | 2024-08-07 13:45 | EKG ---
Test Date: 2024-08-04 Test Time: 01:02:27 Flight Crew Scheduler: TROY MEASUREMENT RESULTS: Intervals: Rate: 173 TN: QRSD: 84 QT: 238 QTc: 403 [place]: P: TN: QRS: -34 T: 170 INTERPRETIVE STATEMENTS: Atrial fibrillation with rapid ventricular response Left axis deviation Marked ST abnormality, possible inferior subendocardial injury Marked ST abnormality, possible anterolateral subendocardial injury Abnormal ECG Compared to ECG 08/01/2024 21:17:29 Left-axis deviation now present ST (T wave) deviation now present Sinus rhythm no longer present Left ventricular hypertrophy no longer present Early repolarization no longer present Electronically Signed On 08-07-24 13:38:22 SCHOOL BUS OPERATOR by Kraig Lee
--- NOTE | 2024-08-07 13:45 | EKG ---
Test Date: 2024-08-04 Test Time: 01:03:50 Mold Yard Worker: TROY MEASUREMENT RESULTS: Intervals: Rate: 178 RI: QRSD: 90 QT: 262 QTc: 451 [place]: P: RI: QRS: -29 T: 166 INTERPRETIVE STATEMENTS: Atrial fibrillation with rapid ventricular response Marked ST abnormality, possible inferior subendocardial injury Marked ST abnormality, possible anterolateral subendocardial injury Abnormal ECG Compared to ECG 08/04/2024 01:02:27 Left-axis deviation no longer present ST (T wave) deviation still present Electronically Signed On 08-07-24 13:38:21 CONVEYOR BELT REPAIRER by Kraig Lee
[2024-08-08] MEDS: METOPROLOL XL 25 MG TAB PO SCH (05:17)
[2024-08-08 05:53] LABS: Absolute Basophils 0.2 K/uL (0-0.5); Absolute Eosinophils 0.2 K/uL (0-0.5); Absolute Lymphocytes (CBC) 2.1 K/uL (0.7-4.9); Absolute Monocytes 0.7 K/uL (0.1-1.3); Absolute Neutrophil 4.6 K/uL (1.8-8.0); Eosinophils % 2.6 % (0-4.4); Hematocrit 28.8 % (36.0-45.0); Hemoglobin 8.7 g/dL (12.0-15.0); Lymphocytes % 27.5 % (15.3-44.8); MCH 20.9 pg (27.0-35.0); MCHC 30.3 g/dL (32.0-36.0); MPV 8.4 fL (7.6-11.3); Monocytes % 8.5 % (3.3-12.3); Neutrophils % 59.4 % (41.7-73.7); Nucleated Red Blood Cells % 0.2 % (0-0); Platelets 242 thou/uL (152-406); RBC Red Blood Cell Count 4.18 M/uL (3.86-4.86); Red Cell Distribution Width 30.2 % (12.1-15.2)
[2024-08-08 06:05] LABS: MCV 68.9 fL (80-100)
[2024-08-08 06:08] LABS: Anion Gap 7.1 mEq/L (5.0-15.0); Magnesium 2.1 mg/dL (1.6-2.4); Phosphorus 3.6 mg/dL (2.5-4.9); Potassium 4.1 mEq/L (3.5-5.1)
--- NOTE | 2024-08-08 08:25 | P.PN ---
Date of Service: 08/08/24 Subjective Awake, mentation improving Working well with PT C/O pain to RLE ROS 10 point ROS as noted above, otherwise negative Physical Exam General: Awake and Confused, NAD HEENT: Atraumatic, Normocephalic, PERRLA Neck: Supple, 2+ carotid pulse no bruit Respiratory: Clear to auscultation bilaterally, Normal air movement, on RA Cardiovascular: Normal pulses, NSR, Normal S1 S2, Systolic murmur Capillary refill: <2 Seconds Gastrointestinal: Soft and benign on palpation, No tenderness Musculoskeletal: No clubbing, No pain with ROM of right hip, knee, ankle Integumentary: No rashes Neurological: Normal speech, Normal tone, Other (confusion) Vitals Reviewed Problem List Acute metabolic encephalopathy Weakness SVT Acute blood loss anemia History of GI bleed Restless leg syndrome CHF GERD Plan Acute metabolic encephalopathy-improving Weakness/Debility -Reports taking baclofen and bactrim -reports hallucinations and seeing red color on everything -head CT with no acute findings -Mental status improving -Continue with PT -Still weaker than baseline per family at bedside -SNF SVT Had episode of SVT that resolved with adenosine 08/04 overnight Has been in NSR since Continue to monitor on tele Cardiology recommend starting Toprol-XL which has been started Continue to monitor on telemetry, no A-fib currently Outpatient follow-up for event monitor/Holter to evaluate for possible underlying A-fib Acute blood loss anemia History of GI bleed -H/H stable -2 units PRBC given in the ED 08/02 -monitor H/H in AM labs -Continue PPI BID Hypertensive -Norvasc ordered -will continue to monitor Restless leg syndrome CHF GERD -continue home medications DVT ppx SCD DNR LOS 2 days
[2024-08-08 12:10] VITALS: O2SAT 98
[2024-08-09 04:30] LABS: Absolute Basophils 0.2 K/uL (0-0.5); Absolute Eosinophils 0.2 K/uL (0-0.5); Absolute Lymphocytes (CBC) 1.5 K/uL (0.7-4.9); Absolute Monocytes 0.8 K/uL (0.1-1.3); Absolute Neutrophil 6.6 K/uL (1.8-8.0); Basophils % 1.7 % (0-1.3); Eosinophils % 2.3 % (0-4.4); Hematocrit 29.8 % (36.0-45.0); Lymphocytes % 15.7 % (15.3-44.8); MCH 20.9 pg (27.0-35.0); MCHC 30.3 g/dL (32.0-36.0); MCV 69.1 fL (80-100); MPV 8.8 fL (7.6-11.3); Monocytes % 8.5 % (3.3-12.3); Neutrophils % 71.8 % (41.7-73.7); Nucleated Red Blood Cells % 0.1 % (0-0); Platelets 223 thou/uL (152-406); RBC Red Blood Cell Count 4.31 M/uL (3.86-4.86); Red Cell Distribution Width 30.3 % (12.1-15.2)
[2024-08-09 04:41] LABS: Phosphorus 3.2 mg/dL (2.5-4.9)
[2024-08-09 05:09] LABS: Anisocytosis 3+; Blood Morphology Comment NOTED (NOT SEEN); Hypochromasia 1+; Microcytosis 1+; Platelet Estimate ADEQ; White Blood Cell Scan OK (OK)
--- NOTE | 2024-08-09 09:42 | P.PN ---
Date of Service: 08/09/24 Subjective Awake, mentation improving Working well with PT C/O pain to RLE Awaiting SNF ROS 10 point ROS as noted above, otherwise negative Physical Exam General: Awake and Confused, NAD HEENT: Atraumatic, Normocephalic, PERRLA Neck: Supple, 2+ carotid pulse no bruit Respiratory: Clear to auscultation bilaterally, Normal air movement, on RA Cardiovascular: Normal pulses, NSR, Normal S1 S2, Systolic murmur Capillary refill: <2 Seconds Gastrointestinal: Soft and benign on palpation, No tenderness Musculoskeletal: No clubbing, No pain with ROM of right hip, knee, ankle Integumentary: No rashes Neurological: Normal speech, Normal tone, Other (confusion) Vitals Reviewed Problem List Acute metabolic encephalopathy Weakness SVT Acute blood loss anemia History of GI bleed Restless leg syndrome CHF GERD Plan Acute metabolic encephalopathy-improving Weakness/Debility -head CT with no acute findings -Mental status improving -Continue with PT -Still weaker than baseline per family at bedside -SNF SVT Had episode of SVT that resolved with adenosine 08/04 overnight Has been in NSR since Continue to monitor on tele Cardiology recommend starting Toprol-XL which has been started Continue to monitor on telemetry, no A-fib currently Outpatient follow-up for event monitor/Holter to evaluate for possible underlying A-fib Acute blood loss anemia History of GI bleed -H/H stable -2 units PRBC given in the ED 08/02 -monitor H/H in AM labs -Continue PPI BID Hypertensive -Norvasc ordered -will continue to monitor Restless leg syndrome CHF GERD -continue home medications DVT ppx SCD DNR LOS 2 days <Adarsh Redmond - Last Filed: 08/09/24 09:41> Patient seen and examined, plan of care discussed with Adarsh Redmond. Patient had a couple of episodes of few seconds SVT last night and this morning. Patient has been asymptomatic. Patient seen and evaluated by cardiology previously for an episode of SVT that resolved with adenosine. Continue Toprol-XL. Potassium and magnesium levels are optimal. Monitor electrolyte and correct them as needed. <jesus matamoros - Last Filed: 08/09/24 17:16>
[2024-08-10 04:46] LABS: Absolute Basophils 0.2 K/uL (0-0.5); Absolute Eosinophils 0.1 K/uL (0-0.5); Absolute Lymphocytes (CBC) 1.3 K/uL (0.7-4.9); Absolute Monocytes 0.9 K/uL (0.1-1.3); Absolute Neutrophil 9.4 K/uL (1.8-8.0); Basophils % 1.5 % (0-1.3); Eosinophils % 0.9 % (0-4.4); Hematocrit 29.7 % (36.0-45.0); Lymphocytes % 10.9 % (15.3-44.8); MCH 20.7 pg (27.0-35.0); MCHC 30.3 g/dL (32.0-36.0); Neutrophils % 78.7 % (41.7-73.7); Platelets 254 thou/uL (152-406); RBC Red Blood Cell Count 4.34 M/uL (3.86-4.86); Red Cell Distribution Width 29.9 % (12.1-15.2)
[2024-08-10 04:52] LABS: MCV 68.3 fL (80-100)
[2024-08-10 04:58] LABS: Anion Gap 9.9 mEq/L (5.0-15.0); Magnesium 2.2 mg/dL (1.6-2.4); Phosphorus 3.5 mg/dL (2.5-4.9); Potassium 3.9 mEq/L (3.5-5.1)
--- NOTE | 2024-08-10 09:04 | P.PN ---
Date of Service: 08/10/24 Subjective Awake, intermittently confused Working well with PT C/O pain to RLE-periodically, Tylenol helps Awaiting SNF ROS 10 point ROS as noted above, otherwise negative Physical Exam General: Awake and Confused, NAD HEENT: Atraumatic, Normocephalic, PERRLA Neck: Supple, 2+ carotid pulse no bruit Respiratory: Clear to auscultation bilaterally, Normal air movement, on RA Cardiovascular: Normal pulses, NSR, Normal S1 S2, Systolic murmur Capillary refill: <2 Seconds Gastrointestinal: Soft and benign on palpation, No tenderness Musculoskeletal: No clubbing, No pain with ROM of right hip, knee, ankle Integumentary: No rashes Neurological: Normal speech, Normal tone, Other (confusion) Vitals Reviewed Problem List Acute metabolic encephalopathy Weakness SVT Acute blood loss anemia History of GI bleed Restless leg syndrome CHF GERD Plan Acute metabolic encephalopathy-improving Weakness/Debility -head CT with no acute findings -Mental status improving still with intermittent confusion- -Continue with PT -Still weaker than baseline per family at bedside -SNF SVT Had episode of SVT that resolved with adenosine 08/04 overnight Has been in NSR since Continue to monitor on tele Cardiology recommend starting Toprol-XL which has been started-will need to be continued at discharge Continue to monitor on telemetry, no A-fib currently Outpatient follow-up for event monitor/Holter to evaluate for possible underlying A-fib Acute blood loss anemia History of GI bleed -Reported melena when in the ED, this is resolved -H/H stable -2 units PRBC given in the ED 08/02 -monitor H/H in AM labs -Continue PPI BID Hypertensive -Norvasc ordered -will continue to monitor Restless leg syndrome CHF GERD -continue home medications DVT ppx SCD DNR LOS 2 days
[2024-08-10] MEDS: POTASSIUM CL SA 10 MEQ TAB PO ONE (09:49)
--- NOTE | 2024-08-11 10:42 | P.DS ---
Admission Date: 08/03/24 Discharge Date: 08/11/24 Disposition: TRANSFER TO [facility] Discharge Condition: GOOD Reason for Admission: acute metabolic encephalopathy Consultations: Arvind Wolf is an 83 year old female with Pmhx restless leg, CHF, GI bleed who presents to the ED with chief complaint of AMS. Laboratory evaluation revealed H/H 5/17 requiring 2 units of PRBC. Family reports black stool a few days ago at home which has continued. They noticed she started hallucinating at home and brought her to the ED. Family reports she had a blood transfusion two years ago when she experienced a GI bleed. At that time a colonoscopy was performed and did not find a bleed. She has since been fine. She is currently on hospice but family and hospice company are unsure why. Family is requesting evaluation for her alerted mental status, hallucinations, and weakness. She was recently prescribed bactim which started on Sunday 07/29 and halluciations started on 07/30 and takes baclofen. Head CT and chest xray with no acute findings. Arvind will be admitted to observation with the hospitalist service for further evaluation of acute blood loss anemia and metabolic encephalopathy. Brief History of Present Illness: Arvind Wolf is an 83 year old female with Pmhx restless leg, CHF, GI bleed who presents to the ED with chief complaint of AMS. Laboratory evaluation revealed H/H 5/17 requiring 2 units of PRBC. Family reports black stool a few days ago at home which has continued. They noticed she started hallucinating at home and brought her to the ED. Family reports she had a blood transfusion two years ago when she experienced a GI bleed. At that time a colonoscopy was performed and did not find a bleed. She has since been fine. She is currently on hospice but family and hospice [employer] are unsure why. Family is requesting evaluation for her alerted mental status, hallucinations, and weakness. She was recently prescribed bactim which started on Sunday 07/29 and halluciations started on 07/30 and takes baclofen. Head CT and chest xray with no acute findings. Arvind will be admitted to observation with the hospitalist service for further evaluation of acute blood loss anemia and metabolic encephalopathy. Physical Exam General: Awake and Confused, NAD HEENT: Atraumatic, Normocephalic, PERRLA Neck: Supple, 2+ carotid pulse no bruit Respiratory: Clear to auscultation bilaterally, Normal air movement, on RA Cardiovascular: Normal pulses, NSR, Normal S1 S2, Systolic murmur Capillary refill: <2 Seconds Gastrointestinal: Soft and benign on palpation, No tenderness Musculoskeletal: No clubbing, No pain with ROM of right hip, knee, ankle Integumentary: No rashes Neurological: Normal speech, Normal tone, Other (confusion) Hospital Course: Arvind Wolf is an 83 year old female with Pmhx restless leg, CHF, GI bleed who presents to the ED with chief complaint of AMS. Laboratory evaluation revealed H/H 12/26 requiring 2 units of PRBC. Family reports black stool a few days ago at home which has continued. They noticed she started hallucinating at home and brought her to the ED. Family reports she had a blood transfusion two years ago when she experienced a GI bleed. At that time a colonoscopy was performed and did not find a bleed. She was admitted for melena, GI bleed, received 2 units of packed red blood cells, had noted acute metabolic encephalopathy, hallucinations, confusion, CT of the brain with no acute findings, she is currently on hospice, plan to transition to senior care facility after discharge. Tolerating diet, stable to discharge to senior care facility, with PT, Assessment Acute metabolic encephalopathy-fall precautions, supportive care, Weakness-evaluated by physical therapy while inpatient SVT-treated with adenosine inpatient, discharged home on p.o. metoprolol XL daily-need to follow-up with cardiology outpatient Holter monitor Acute blood loss anemia-received 2 units packed red blood cells, ED 08/02 History of GI bleed resolved,-H&H currently stable, hemoglobin 8.7, currently 9.0 Restless leg syndrome-resume home meds, CHF-not in exacerbation GERD resume home meds, PPI after discharge Chest x-ray no acute abnormality, heart mild enlargement, atherosclerosis in the aorta CT of the brain no acute abnormality UA unremarkable Outpatient follow-up for event monitor/Holter to evaluate for possible underlying A-fib Continue home medicines as previously prescribed GOAL: Clear understanding of disease process INSTRUCTIONS: Physician Discharge Instructions: -Follow-up with GI outpatient for GI bleed, recent colonoscopy completed no bleed noted -Follow-up with cardiology outpatient -Follow-up with PCP in 1 to 2 weeks -Please call Dr. Alford at [phone] if any questions regarding hospital stay -Please call nursing station at [phone] if any nursing or medication questions -Return to the emergency room if symptoms worsen Diet: ADA, low sodium Activity: Fall precautions Vital Signs/Physical Exam: Temp Pulse Resp BP Pulse Ox 97.6 F 72 16 137/99 H 97 08/11/24 08:00 08/11/24 09:10 08/11/24 08:00 08/11/24 09:10 08/11/24 08:00 Laboratory Data at Discharge: WBC 11.90 thou/uL (4.3-10.9) H 08/10/24 04:20 Hgb 9.0 g/dL (12.0-15.0) L 08/10/24 04:20 Hct 29.7 % (36.0-45.0) L 08/10/24 04:20 Plt Count 254 thou/uL (152-406) 08/10/24 04:20 PT 13.1 SECONDS (9.4-12.5) H 08/01/24 20:55 INR 1.18 08/01/24 20:55 Sodium 135 mEq/L (136-145) L 08/10/24 04:20 Potassium 3.9 mEq/L (3.5-5.1) 08/10/24 04:20 BUN 22 mg/dL (7-18) H 08/10/24 04:20 Creatinine 0.59 mg/dL (0.55-1.02) 08/10/24 04:20 Glucose 107 mg/dL (74-106) H 08/10/24 04:20 Phosphorus 3.5 mg/dL (2.5-4.9) 08/10/24 04:20 Magnesium 2.2 mg/dL (1.6-2.4) 08/10/24 04:20 Total Bilirubin 0.5 mg/dL (0.2-1.0) 08/03/24 17:00 AST 47 U/L (15-37) H 08/03/24 17:00 ALT 31 U/L (13-56) 08/03/24 17:00 Alkaline Phosphatase 70 U/L (45-117) 08/03/24 17:00 Home Medications: Omeprazole 20 mg PO BID 12/22/24 Amlodipine [Norvasc*] 5 mg PO DAILY tab 08/10/24 Metoprolol Succinate [Toprol Xl*] 25 mg PO [id number] tab 08/10/24 Trazodone [Desyrel*] 50 mg PO BEDTIME PRN PRN 08/10/24 Physician Discharge Instructions: PROBLEM: Anemia GOAL: Clear understanding of disease process INSTRUCTIONS: Call 2nd floor nurses station for any questions/concerns [phone] Follow up with Primary provider as directed Return to ER for any emergency Take medications as directed Diet: Regular Activity: Fall precautions Patient was initially admitted to the hospital for worsening mental status, melena, hallucinations. They declined transfer for GI evaluation, she was given 2 units of PRBC as well as twice daily PPI and the melena resolved, hemoglobin has remained stable. Her mental status waxes and wanes, she is sometimes oriented x 2 and sometimes more confused. She worked with PT and family found that she was weaker than her baseline and preferred SNF at discharge for further PT before discharge home. During her hospitalization she did have an episode of SVT requiring adenosine to terminate. She is seen by cardiology recommended starting Toprol XL 25 mg daily which was started, patient had no further episodes of SVT during hospitalization. Patient has been accepted to [facility] for further PT prior to DC home. Diet: Regular Activity: Fall precautions Followup: ALICIA VARGAS [Primary Care Provider] - 1-2 Weeks Time spent managing pt's care (in minutes): 45
[2024-08-11] MEDS: DOCUSATE NA 100 MG CAP PO ONE (11:04)
[2024-08-11 17:52] VITALS: BP 155/52; TEMP 97.7
== END 2024-08-11 12:30 | DRG 947 ==
LOC: ER 19:37 → ERHOLD 08-02 11:42 → 2ND 08-02 12:18 → OBSVTOIN 08-03 14:21
PROVIDERS: ADMIT Hospitalist; ATTEND Hospitalist
PROC: 30233N1 Transfusion of Nonautologous Red Blood Cells into Peripheral Vein, Percutaneous Approach (ICD-10-PCS; principal; 2024-08-02)
DX: R53.1 Weakness (principal); G93.41 Metabolic encephalopathy; D62 Acute posthemorrhagic anemia; K92.1 Melena; I47.10 Supraventricular tachycardia, unspecified; G25.81 Restless legs syndrome; I11.0 Hypertensive heart disease with heart failure; I50.9 Heart failure, unspecified; K21.9 Gastro-esophageal reflux disease without esophagitis; F03.90 Unspecified dementia, unspecified severity, without behavioral disturbance, psychotic disturbance, mood disturbance, and anxiety; Z66 Do not resuscitate; Z79.899 Other long term (current) drug therapy
CPT/HCPCS: 36415; 70450; 71045; 80048; 80053; 80076; 81003; 82947; 83605; 83735; 83880; 84100; 85014; 85018; 85025; 85027; 85610; 86850; 86900; 86901; 86920; 93005; 96374; 97110; 97116; 97161; 97530; 99284; G0378; J0153; J0360; J2470; J7030; J7050; P9016